=== PATIENT | male | born 1990 | race Caucasian/White ===

== ENCOUNTER → 2019-05-30 | Outpatient (CLI) | payer BC ==
--- NOTE | 2019-05-30 11:01 | ECHOF ---
Referral Reason:Q67.6 pectus excavatum MEASUREMENTS -------- HEIGHT: 170.2 cm WEIGHT: 61.2 kg BP: IVSd: 0.9 cm (0.6 - 1.1) LVIDd: 4.2 cm (3.9 - 5.3) LVPWd: 1.0 cm (0.6 - 1.1) IVSs: 1.3 cm LVIDs: 2.7 cm LVPWs: 1.2 cm Ao Diam: 3.2 cm (2.0 - 3.7) AV Cusp: 1.9 cm (1.5 - 2.6) MV EXCURSION: 21.150 mm (> 18.000) MV EF SLOPE: 95 mm/s (70 - 150) EPSS: 0.2 cm MV E Harjit: 0.65 m/s MV DecT: 207 ms MV A Harjit: 0.32 m/s MV E/A Ratio: 2.06 RAP: 5.00 mmHg RVSP: 19.87 mmHg FINDINGS -------- Sinus rhythm. This was a technically good study. Pt. has a pectus chest. LV size, wall thickness and systolic function are normal, with an EF greater than 55%. The left adriane tricular size is normal. The right ventricle is normal in size and function. The left atrial size is normal. The right atrial size is normal. The aortic valve is trileaflet, and appears structurally normal. No aortic stenosis or regurgitation. Mild mitral regurgitation is present. Mild tricuspid regurgitation present. Right ventricular systolic pressure is normal at < 35 mmHg. There is no evidence of pulmonary hypertension. There is no pulmonic regurgitation present. The aortic root size is normal. There is no pericardial effusion. CONCLUSIONS -------- 1. Sinus rhythm. 2. This was a technically good study. 3. Pt. has a pectus chest. 4. LV size, wall thickness and systolic function are normal, with an EF greater than 55%. 5. The left ventricular size is normal. 6. The right ventricle is normal in size and function. 7. The left atrial size is normal. 8. The right atrial size is normal. 9. The aortic valve is trileaflet, and appears structurally normal. No aortic stenosis or regurgitati on. 10. Mild mitral regurgitation is present. 11. Mild tricuspid regurgitation present. 12. Right ventricular systolic pressure is normal at < 35 mmHg. 13. There is no evidence of pulmonary hypertension. 14. There is no pulmonic regurgitation present. 15. The aortic root size is normal. 16. There is no pericardial effusion. CASH APPLICATION CLERK: Radha Vaughan RDCS
== END | disposition home or self-care (01) ==
LOC: RADECHMAIN 08:06
PROVIDERS: ATTEND Family Medicine
DX: I08.1 Rheumatic disorders of both mitral and tricuspid valves (principal); Q67.6 Pectus excavatum
CPT/HCPCS: 93306

== ENCOUNTER → 2020-04-18 | Outpatient (CLI) | payer BC ==
--- NOTE | 2020-04-18 22:25 | MR ---
EXAMINATION TYPE: MR brain wo/w con DATE OF EXAM: 04/18/2020 COMPARISON: Prior films aren't available at this location. HISTORY: Blurred vision CONTRAST: Performed utilizing 6.5 mL intravenous Gadavist gadolinium contrast. TECHNIQUE: Multiplanar, multiecho imaging on a 3.0 Tiesha magnet is performed through the brain. Stud y is performed within 24 hours of arrival to the hospital. The craniovertebral junction is normal. The pituitary is normal. Diffusion-weighted imaging is performed. No abnormal hyperintensity is present to suggest an acute i ntracranial infarct or acute ischemic change. There are scattered subcortical punctate white matter changes greater in the bilateral centrum semiov suad. The largest is within the right frontal lobe measuring 0.7 x 0.6 cm. Series 501 image 26 finding s are nonspecific and greater than expected for the patient age. Clinical consideration for multiple sclerosis is recommended. Migraine headaches could be considered within the differential. Lyme diseas e and vasculitis could be considered. Ventricles and sulci are appropriate for the patient age. Retention cysts are within the bilateral maxillary sinuses. Minimal mucosal thickenings within ethmoi d air cells. Paranasal sinuses are clear. Following contrast administration no suspicious enhancement is evident. IMPRESSIONS: 1. Multiple scattered subcortical white matter changes. Clinical consideration for multiple sclerosis is recommended.
== END | disposition home or self-care (01) ==
LOC: RADMRIMAIN 19:12
PROVIDERS: ATTEND Family Medicine
DX: R90.82 White matter disease, unspecified (principal)
CPT/HCPCS: 70553; A9585